=== PATIENT | male | born 1965 | race Caucasian/White ===

== ENCOUNTER → 2023-10-08 07:00 | Outpatient (REF) | payer BC, SELFPAY | LOC: RCS 07:00 | PROVIDERS: ATTENDING PHYSICIAN Internal Medicine; FAMILY PHYSICIAN Internal Medicine | DX: I34.0 Nonrheumatic mitral (valve) insufficiency (principal); I10 Essential (primary) hypertension; C90.00 Multiple myeloma not having achieved remission | CPT/HCPCS: 93306; 93356 ==